=== PATIENT | female | born 1985 | race Caucasian/White ===

== ENCOUNTER → 2021-02-18 15:49 | Outpatient (CLI) | payer BC, SELFPAY ==
--- NOTE | ~2021-02-18 | US_ITS ---
EXAMINATION: US OB <=14 wk fetus w TV DATE: 02/18/2021 16:19 INDICATION: First trimester viability assessment TECHNIQUE: Real-time pelvic transabdominal and transvaginal ultrasound was performed. COMPARISON: None. FINDINGS: The uterus measures 9.4 x 4.4 x 5.1 cm. There is an intrauterine gestational sac. A yolk s ac is identified. heart motion is identified measuring 97 beats per minute (bpm) by M-mode Dopp ler. The crown rump length measures 5 mm , which correlates with an estimated gestational age o f 6 weeks and 1 day(s) (+/-) 4 day(s). The right ovary measures 2.2 x 1.5 x 1.8 cm. The left ovary measures 2.1 x 2.7 x 2.5 cm. There is nor mal vascular flow in the ovaries. There is no free fluid in the pelvis. IMPRESSION: 1. Live intrauterine with an estimated gestational age of 6 weeks and 1 day(s) (+/-) 4 day( s) and an estimated delivery date of 10/13/2021. 2. bradycardia. Reviewed, dictated and finalized at location B. IMPRESSION: 1. Live intrauterine with an estimated gestational age of 6 weeks and 1 day(s) (+/-) 4 day(s) and an estimated delivery date of 10/13/2021. 2. bradycardia.
== END ==
PROVIDERS: PCP Internal Medicine; Visit Provider Internal Medicine
DX: Z36.89 Encounter for other specified antenatal screening (principal); Z3A.01 Less than 8 weeks gestation of pregnancy; O36.8310 Maternal care for abnormalities of the fetal heart rate or rhythm, first trimester, not applicable or unspecified
CPT/HCPCS: 76801; 76817

== ENCOUNTER 2021-03-21 02:47 | Day surgery (SDC) | payer BC, SELFPAY ==
[2021-03-20 08:31] VITALS: BMI 43.2
--- NOTE | 2021-03-21 12:12 | P.HP_ITS ---
H&P: HPI History of Present Illness Date/Time: 03/21/21 12:12 35 y/o with LMP 01/07/21, which would make her 10w3d EGA. She says she had an ultrasound exam at around six weeks which demonstrated cardiac motion. However, at the time of her first visit to my office on 03/19/21, the CRL was only consistent with 6 week and there was no cardiac motion. She has had no bleeding or cramping. Chief Complaint: Miscarriage Review of Systems Review of Systems: All systems reviewed & are unremarkable except as noted in HPI and below PMFSH Past Medical History Medical History Anxiety Asthma Hypothyroidism Social History Social History Smoking status: Never smoker Alcohol intake: never Substance use: never Substance use type: does not use Living arrangements: with family Spiritual care concerns: No Meds Home Medications and Allergies Home Medications Medication Instructions Recorded Confirmed Type PNV cmb#95-ferrous fumarate-FA 1 tablet PO DAILY 03/20/21 03/20/21 History [] levothyroxine 25 mcg PO DAILY 03/20/21 03/20/21 History sertraline 50 mg PO DAILY 03/20/21 03/20/21 History Allergies Allergy/AdvReac Type Severity Reaction Status Date / Time No Known Allergies Allergy Verified 03/20/21 08:28 Exam Const: Orientation/consciousness: patient oriented x3 Other: Well- developed, well-nourished female in no acute distress. Neck: Thyroid: thyroid normal Lymphatic: no lymphadenopathy noted (in neck, axilla or inguinal nodes) Resp: Effort & Inspection: normal respiratory effort Auscultation: clear to auscultation bilaterally Cardio: Rate: regular rate Rhythm: regular rhythm Heart sounds: S1 normal heart sound present and S2 normal heart sound present GI: Other: ABD: Soft, nontender, nondistended. No guarding or rebound tenderness. No hepatosplenomegaly. : General: Yes no CVA tenderness Other: Deferred to OR. Back/Spine/Pelvis: Back: no CVA tenderness Skin: General skin exam: normal color and no rashes or lesions noted Neuro: General: patient oriented x3 Extrem: Other: Extremities: nontender with no edema Psych: Mental Status: mental status grossly normal Affect: normal affect Assessment and Plan Assessment and plan (1) Spontaneous : Code(s): O03.9 - Complete or unspecified spontaneous without complication Status: Acute Assessment and Plan: A: Missed SAB. P: Offered expectant management vs surgical management. She prefers the latter. Specifically, I have offered a dilation and suction curettage. She understands risks of surgery to include risks of anesthesia, risks of pain, infection, bleeding, blood products, thromboembolic phenomena and damage to adjacent structures such as bowel, bladder, ureters, blood vessels and nerves. She understands all these risks and elects to proceed with surgery.
[2021-03-21 12:31] VITALS: BP 140/75; PULSE 72; RESP 16; TEMP 36.3; O2SAT 98
--- NOTE | 2021-03-21 12:56 | WPDANESEPPF ---
Anes - Initial Pre Proc Eval Procedure: Operation Date: 03/21/21 14:30 Proposed Procedures p Suction Dilation and Curettage - Jaime Mcbride MD Date/Time: 03/21/21 12:56 Surgeon: Jaime Mcbride MD Pre Op Diagnosis: Missed Ab Patient Data Age: 35 Gender: F Height: 1.59 m Weight: 108.86 kg Allergies Allergy/AdvReac Type Severity Reaction Status Date / Time No Known Allergies Allergy Verified 03/20/21 08:28 Home Medications Medication Instructions Recorded Confirmed Type PNV cmb#95-ferrous fumarate-FA 1 tablet PO DAILY 03/20/21 03/20/21 History [] levothyroxine 25 mcg PO DAILY 03/20/21 03/20/21 History sertraline 50 mg PO DAILY 03/20/21 03/20/21 History Patient hx anesthesia problems: none Family hx anesthesia problems: none Results Review: All pre-operative results and documents have been reviewed as part of the pre-operative evaluation. PMFSH Past Medical History Medical History Anxiety Asthma Hypothyroidism Social History Social History Smoking status: Never smoker Alcohol intake: never Substance use: never Substance use type: does not use Living arrangements: with family Spiritual care concerns: No Anes - Eval Final PreProcedure Day of Procedure 03/21/21 12:56 Patient weight: morbidly obese Heart: regular rate and rhythm Lungs: clear to auscultation and normal air movement Airway: Mallampati scale class II Neurological: alert and oriented Last oral intake: >/= 8 hours ASA classification: III Emergent: no Anesthetic plan: proceed Anesthesia type and monitoring: general GIVS and standard monitoring Results Review: All pre-operative results and documents have been reviewed as part of the pre-operative evaluation. Informed Consent: The patient's anesthetic plan and its attendant risks and benefits were discussed with the patient/family/POA. Questions were solicited and answers provided to the satisfaction of the patient/family/POA.
--- NOTE | 2021-03-21 13:01 | WPDHPUPDATE1 ---
History and Physical Update Update Date/Time: 03/21/21 13:01 History and Physical has been reviewed, including an updated exam of the patient. There are NO changes in the patient's condition. Risks, benefits, and alternatives have been discussed and questions answered. Patient agrees to proceed with procedure.
[2021-03-21] MEDS: ACETAMINOPHEN 500 MG TABLET 1000 MG PO (13:04)
[2021-03-21] MEDS: LACTATED RINGERS 1,000 ML 30 ML IV CONT (13:05)
[2021-03-21 13:54] VITALS: BP 139/70; PULSE 85; RESP 12; O2SAT 95
--- NOTE | 2021-03-21 13:56 | W.PM.PROC2 ---
Procedure Note - Detailed Date of Procedure 03/21/21 Pre-op Diagnosis Missed Ab Post-op Diagnosis same Procedure Performed Dilation and suction curettage Surgeon Jaime Mcbride MD Anesthesia MAC Findings POC noted Description of Procedure The patient was taken to the operating room where she was prepared and draped in the usual sterile fashion in the dorsal lithotomy position. The bladder was drained with a red rubber catheter. A sterile speculum was placed into the vagina. The anterior lip of the cervix was grasped with a single-tooth tenaculum. Ten mL of 1% lidocaine was administered in a paracervical block. The cervix was gently dilated using Hegar dilators until a 7mm dilator could be passed. The 8mm curved tip suction curette was advanced. Suction curettage was performed and products of conception were aspirated. Sharp curettage was then performed until a good uterine cry was noted. A final pass with the suction curette was made. The tenaculum was removed. Hemostasis was excellent. Sponge, lap, needle and instrument counts were correct. The patient was taken to the recovery room in stable condition. I was present and scrubbed for the entire procedure. Implants None Estimated Blood Loss 50 Drains No Packing No Pathology yes (endometrial curettings) Complications None Condition stable Disposition PACU
[2021-03-21] MEDS: fentaNYL CITRATE INJ (*CRX) 100 MCG/2 ML VIAL 25 MCG IV PUSH ×2 (14:09→14:21)
[2021-03-21 14:15] VITALS: BP 126/66; PULSE 73; RESP 20
[2021-03-21 14:45] VITALS: BP 114/83; PULSE 54; RESP 20
[2021-03-21 15:15] VITALS: BP 119/63; PULSE 69; RESP 20
[2021-03-21] MEDS: RHO(D) IMMUNE GLOBULIN 300 MCG/2 ML SYRINGE IM (15:28)
--- NOTE | 2021-03-21 15:33 | SUR.PHASEII ---
1528 - Rho D Immune Globulin administered. Lot# [id number] Exp 03/31/22
[2021-03-21 15:45] VITALS: BP 116/73; PULSE 50; RESP 20
== END 2021-03-21 15:55 | disposition home or self-care (01) ==
PROVIDERS: PCP Internal Medicine; Visit Provider Obstetrics & Gynecology
DX: O02.1 Missed abortion (principal); E03.9 Hypothyroidism, unspecified; F41.9 Anxiety disorder, unspecified
CPT/HCPCS: 59820; 36415; 85461; 88305; 90384; A9270; J2704; J2790; J3010; J7120